=== PATIENT | female | born 1980 | race Caucasian/White ===

== ENCOUNTER 2017-12-20 20:07 | Inpatient (IN) | payer MEDICAID, OTHER ==
[2017-12-20] MEDS: HYDROCODONE/APAP (5/325) TAB PO (21:53)
[2017-12-20] MEDS: FAMOTIDINE 20 MG TAB PO (21:53)
[2017-12-20] MEDS: LIDOCAINE/MYLANTA 40 ML BTL PO (21:53)
[2017-12-20 21:56] LABS: URINE BLOOD (Dip) POC 2+ (NEGATIVE); URINE GLUCOSE (Dip) POC Negative (NEGATIVE); URINE KETONES (Dip) POC 1+ (NEGATIVE); URINE LEUKOCYTE EST (Dip) POC Negative (NEGATIVE); URINE NITRITE (Dip) POC Negative (NEGATIVE); URINE TOTAL PROTEIN POC 1+ (NEGATIVE)
[2017-12-20 22:01] LABS: ADD MAN DIFF? NO
[2017-12-20 22:19] LABS: ADD UMIC YES; UR ASCORBIC ACID NEGATIVE (NEGATIVE); UR BILIRUBIN (Dip) 2+ mg/dL (NEGATIVE); UR BLOOD (Dip) 2+ mg/dL (NEGATIVE); UR CLARITY CLEAR (CLEAR); UR COLOR AMBER (YELLOW); UR GLUCOSE (Dip) NEGATIVE (NEGATIVE); UR KETONES (Dip) NEGATIVE (NEGATIVE); UR LEUKOCYTE ESTERASE (Dip) NEGATIVE Leu/ul (NEGATIVE); UR MUCUS MANY /HPF (NONE SEEN); UR NITRITE (Dip) NEGATIVE (NEGATIVE); UR RBC 58 /HPF (0-5); UR SPECIFIC GRAVITY (Dip) 1.026 (1.003-1.030); UR SQUAMOUS EPITHELIAL CELL FEW /HPF (FEW); UR TOTAL PROTEIN (Dip) 1+ mg/dl (NEGATIVE); UR UROBILINOGEN (Dip) 2+ mg/dL (NEGATIVE); UR WBC 3 /HPF (0-5)
[2017-12-20 22:26] LABS: WHITE BLOOD COUNT 12.8 10^3/ul (4.8-10.8)
[2017-12-20 22:26] LABS: BASOPHILS % 0.2 % (0.0-2.0); EOSINOPHILS % 0.2 % (0.0-7.0); HEMATOCRIT 41.5 % (37.0-47.0); HEMOGLOBIN 13.8 g/dl (12.0-16.0); INR 0.96; LYMPHOCYTES % 7.7 % (15.0-51.0); MEAN CORPUSCULAR HEMOGLOBIN 28.5 pg (29.0-33.0); MEAN CORPUSCULAR HGB CONC 33.3 g/dl (32.0-37.0); MEAN CORPUSCULAR VOLUME 85.6 fl (82.0-101.0); MEAN PLATELET VOLUME 10.1 fl (7.4-10.4); MONOCYTE # 0.8 10^3/ul (0.3-0.9); MONOCYTES % 6.1 % (0.0-11.0); NEUTROPHIL # 10.9 10^3/ul (1.6-7.5); NEUTROPHILS % 85.3 % (39.0-77.0); PLATELET COUNT 331 10^3/UL (140-415); PROTIME 12.9 Sec (11.9-14.9); RED BLOOD COUNT 4.85 10^6/ul (4.20-5.40); RED CELL DISTRIBUTION WIDTH 12.9 % (11.5-14.5)
[2017-12-20 22:27] LABS: PARTIAL THROMBOPLASTIN TIME 26.8 Sec (25.0-35.0)
[2017-12-20 22:31] LABS: ALBUMIN 4.9 g/dl (3.3-4.9); ALBUMIN/GLOBULIN RATIO 1.25; ALKALINE PHOSPHATASE 208 IU/L (42-121); ANION GAP 12 (8-16); BILIRUBIN,INDIRECT 1.5 mg/dl (0-1.1); BILIRUBIN,TOTAL 3.8 mg/dl (0.2-1.3); BLOOD UREA NITROGEN 8 mg/dl (7-20); CALCIUM 9.5 mg/dl (8.4-10.2); CARBON DIOXIDE 27 mmol/L (21-31); CHLORIDE 103 mmol/L (97-110); CREATININE 0.58 mg/dl (0.44-1.00); GLUCOSE 118 mg/dl (70-220); LIPASE 73 U/L (23-300); POTASSIUM 3.8 mmol/L (3.5-5.1); SODIUM 138 mmol/L (135-144); TOTAL PROTEIN 8.8 g/dl (6.1-8.1)
[2017-12-20 22:41] LABS: ALANINE AMINOTRANSFERASE 1192 IU/L (13-69); ASPARTATE AMINO TRANSFERASE 972 IU/L (15-46)
[2017-12-20 22:42] LABS: TROPONIN-I < 0.010 ng/ml (0.000-0.120)
[2017-12-21] MEDS ORDERED: ACETAMINOPHEN 325 MG TAB PO
[2017-12-21] MEDS ORDERED: DOCUSATE SODIUM 100 MG CAP PO
[2017-12-21] MEDS ORDERED: BISACODYL (EC) 5 MG TAB PO
[2017-12-21] MEDS ORDERED: NACL 0.9% 3 ML SYG IV
[2017-12-21 00:03] LABS: HAAIG REFLEX REFLEX FILED
[2017-12-21] MEDS: SOD CHLORIDE 0.9% 1,000 ML IV ×4 (00:05→16:36)
[2017-12-21] MEDS: CEFTRIAXONE 1 GM/50 ML (PMX) 50 ML IVPB (00:12)
[2017-12-21] MEDS: LACTATED RINGER'S 1,000 ML IV (00:12)
[2017-12-21] MEDS: metroNIDAZOLE 500 MG/NS (PMX) 100 ML IVPB (00:13)
[2017-12-21 00:47] LABS: HEPATITIS B SURFACE ANTIGEN NEGATIVE (NEGATIVE)
[2017-12-21 01:03] LABS: HEPATITIS B SURFACE ANTIBODY NEGATIVE (NEGATIVE)
[2017-12-21 01:05] LABS: HEPATITIS B CORE ANTIBODY NEGATIVE (NEGATIVE); HEPATITIS C VIRAL ANTIBODY NEGATIVE (NEGATIVE)
[2017-12-21] MEDS: HYDROmorphONE 0.5 MG/0.5 ML SYG IV ×2 (01:35→10:43)
[2017-12-21] MEDS: ONDANSETRON 4 MG INJ IV (01:35)
[2017-12-21] MEDS ORDERED: PIPER-TAZO 3.375 GM IV (PMX) 100 ML IVPB (04:00)
[2017-12-21] MEDS: PIPER-TAZO 3.375 GM IV (PMX) 100 ML IVPB ×4 (05:22→23:44)
[2017-12-21 05:52] LABS: ADD MAN DIFF? NO
[2017-12-21 05:59] LABS: BASOPHILS % 0.2 % (0.0-2.0); EOSINOPHILS # 0.1 10^3/ul (0.0-0.5); EOSINOPHILS % 0.5 % (0.0-7.0); HEMATOCRIT 38.5 % (37.0-47.0); HEMOGLOBIN 12.7 g/dl (12.0-16.0); LYMPHOCYTES # 1.1 10^3/ul (0.8-2.9); LYMPHOCYTES % 11.6 % (15.0-51.0); MEAN CORPUSCULAR HEMOGLOBIN 28.6 pg (29.0-33.0); MEAN CORPUSCULAR VOLUME 86.7 fl (82.0-101.0); MEAN PLATELET VOLUME 10.5 fl (7.4-10.4); MONOCYTE # 0.7 10^3/ul (0.3-0.9); MONOCYTES % 7.5 % (0.0-11.0); NEUTROPHIL # 7.8 10^3/ul (1.6-7.5); NEUTROPHILS % 79.8 % (39.0-77.0); PLATELET COUNT 280 10^3/UL (140-415); RED BLOOD COUNT 4.44 10^6/ul (4.20-5.40); RED CELL DISTRIBUTION WIDTH 13.1 % (11.5-14.5)
[2017-12-21 05:59] LABS: WHITE BLOOD COUNT 9.8 10^3/ul (4.8-10.8)
[2017-12-21 06:20] LABS: ALANINE AMINOTRANSFERASE 849 IU/L (13-69); ALBUMIN 3.9 g/dl (3.3-4.9); ALBUMIN/GLOBULIN RATIO 1.21; ALKALINE PHOSPHATASE 170 IU/L (42-121); ANION GAP 12 (8-16); ASPARTATE AMINO TRANSFERASE 557 IU/L (15-46); BILIRUBIN,INDIRECT 1.2 mg/dl (0-1.1); BILIRUBIN,TOTAL 3.5 mg/dl (0.2-1.3); BLOOD UREA NITROGEN 7 mg/dl (7-20); CALCIUM 8.1 mg/dl (8.4-10.2); CARBON DIOXIDE 26 mmol/L (21-31); CHLORIDE 105 mmol/L (97-110); CHOL/HDL RATIO 6.3 RATIO; CHOLESTEROL 179 mg/dl (100-200); CREATININE 0.49 mg/dl (0.44-1.00); GLUCOSE 99 mg/dl (70-220); HDL CHOLESTEROL 28 mg/dl (34-82); LDL CHOLESTEROL,CALCULATED 132 mg/dl; MAGNESIUM 2.1 mg/dl (1.7-2.5); POTASSIUM 3.9 mmol/L (3.5-5.1); SODIUM 139 mmol/L (135-144); TOTAL PROTEIN 7.1 g/dl (6.1-8.1); TRIGLYCERIDES 94 mg/dl (0-149)
[2017-12-21 06:38] LABS: HEMOGLOBIN A1C 5.6 % (0-5.9)
[2017-12-21 07:28] LABS: ETHANOL < 10.0 mg/dl
[2017-12-21 16:42] LABS: ACETAMINOPHEN < 10.0 ug/ml (10.0-30.0)
[2017-12-21] MEDS: PANTOPRAZOLE 40 MG INJ IV (17:50)
[2017-12-22] MEDS: SOD CHLORIDE 0.9% 1,000 ML IV ×2 (04:28→17:28)
[2017-12-22] MEDS: PANTOPRAZOLE 40 MG INJ IV ×2 (05:44→17:27)
[2017-12-22] MEDS: PIPER-TAZO 3.375 GM IV (PMX) 100 ML IVPB ×4 (05:44→23:36)
[2017-12-22 08:43] LABS: ADD MAN DIFF? NO
[2017-12-22 08:56] LABS: BASOPHILS % 0.4 % (0.0-2.0); EOSINOPHILS # 0.2 10^3/ul (0.0-0.5); EOSINOPHILS % 2.4 % (0.0-7.0); HEMATOCRIT 35.5 % (37.0-47.0); HEMOGLOBIN 11.8 g/dl (12.0-16.0); LYMPHOCYTES # 1.2 10^3/ul (0.8-2.9); LYMPHOCYTES % 14.8 % (15.0-51.0); MEAN CORPUSCULAR HEMOGLOBIN 29.1 pg (29.0-33.0); MEAN CORPUSCULAR HGB CONC 33.2 g/dl (32.0-37.0); MEAN CORPUSCULAR VOLUME 87.4 fl (82.0-101.0); MEAN PLATELET VOLUME 10.6 fl (7.4-10.4); MONOCYTE # 0.6 10^3/ul (0.3-0.9); MONOCYTES % 7.4 % (0.0-11.0); NEUTROPHIL # 6.3 10^3/ul (1.6-7.5); NEUTROPHILS % 74.5 % (39.0-77.0); PLATELET COUNT 273 10^3/UL (140-415); RED BLOOD COUNT 4.06 10^6/ul (4.20-5.40); RED CELL DISTRIBUTION WIDTH 13.2 % (11.5-14.5)
[2017-12-22 08:56] LABS: WHITE BLOOD COUNT 8.4 10^3/ul (4.8-10.8)
[2017-12-22 09:14] LABS: INR 1.05; PROTIME 13.8 Sec (11.9-14.9); PT RATIO 1.1
[2017-12-22 09:52] LABS: ALANINE AMINOTRANSFERASE 545 IU/L (13-69); ALBUMIN 3.5 g/dl (3.3-4.9); ALBUMIN/GLOBULIN RATIO 1.16; ALKALINE PHOSPHATASE 163 IU/L (42-121); ANION GAP 13 (8-16); ASPARTATE AMINO TRANSFERASE 168 IU/L (15-46); BILIRUBIN,INDIRECT 0.7 mg/dl (0-1.1); BILIRUBIN,TOTAL 0.7 mg/dl (0.2-1.3); BLOOD UREA NITROGEN 7 mg/dl (7-20); CALCIUM 8.2 mg/dl (8.4-10.2); CARBON DIOXIDE 24 mmol/L (21-31); CHLORIDE 106 mmol/L (97-110); CREATININE 0.63 mg/dl (0.44-1.00); GLUCOSE 80 mg/dl (70-220); POTASSIUM 3.5 mmol/L (3.5-5.1); SODIUM 139 mmol/L (135-144); TOTAL PROTEIN 6.5 g/dl (6.1-8.1)
[2017-12-23] MEDS: SOD CHLORIDE 0.9% 1,000 ML IV ×3 (01:53→07:00)
[2017-12-23] MEDS: PIPER-TAZO 3.375 GM IV (PMX) 100 ML IVPB ×3 (05:15→18:04)
[2017-12-23] MEDS: PANTOPRAZOLE 40 MG INJ IV ×2 (05:15→18:04)
[2017-12-23] MEDS ORDERED: SUCCINYLCHOLINE CHLORIDE 100 MG/5 ML SYG IV (07:00)
[2017-12-23] MEDS ORDERED: ROCURONIUM 50 MG INJ (07:00)
[2017-12-23] MEDS ORDERED: ONDANSETRON 4 MG INJ (07:00)
[2017-12-23] MEDS ORDERED: DEXAMETHASONE 4 MG/ML 1 ML INJ (07:00)
[2017-12-23] MEDS ORDERED: FENTAnyl 50 MCG/ML VIAL (18:00)
[2017-12-23] MEDS ORDERED: MIDAZOLAM 1 MG/ML 2 ML INJ (18:01)
[2017-12-23] MEDS ORDERED: CEFAZOLIN 1 GM INJ (18:02)
[2017-12-23] MEDS ORDERED: LIDOCAINE 2% (SDV) 5 ML INJ (18:11)
[2017-12-23] MEDS ORDERED: PROPOFOL 20 ML (18:11)
[2017-12-23] MEDS ORDERED: METOCLOPRAMIDE 10 MG INJ (18:29)
[2017-12-23] MEDS ORDERED: BUPIVACAINE 0.25%/EPI (SDV) 30 ML INJ (19:18)
[2017-12-23] MEDS ORDERED: LIDOCAINE 1% (MPF) 30 ML INJ (19:18)
[2017-12-23] MEDS ORDERED: HYDROCODONE/APAP (5/325) TAB PO ×2 (19:30)
[2017-12-23] MEDS ORDERED: HYDROmorphONE 2 MG/ML SYG (20:13)
[2017-12-23] MEDS ORDERED: LABETALOL HCL 20MG INJ (20:34)
[2017-12-23] MEDS ORDERED: ROPIVACAINE 0.5 % 30 ML VIAL (20:49)
[2017-12-23] MEDS ORDERED: SUGAMMADEX SODIUM 200 MG/2 ML VIAL IV ×2 (20:55→21:13)
[2017-12-23] MEDS ORDERED: MEPERIDINE 25 MG INJ IV (21:30)
[2017-12-23] MEDS ORDERED: HYDROmorphONE 1 MG/5 ML IV SYRINGE IV ×2 (21:30)
[2017-12-23] MEDS ORDERED: IPRATROPIUM (NEB) 0.5 MG/2.5 ML AMP HHN (21:30)
[2017-12-23] MEDS ORDERED: ONDANSETRON 4 MG INJ IV (21:30)
[2017-12-23] MEDS ORDERED: FENTAnyl 50 MCG/ML VIAL IV (21:30)
[2017-12-23] MEDS ORDERED: DIPHENHYDRAMINE 50 MG INJ IV (21:30)
[2017-12-23] MEDS ORDERED: KETOROLAC 30 MG INJ IV (21:30)
[2017-12-23] MEDS: FENTAnyl 50 MCG/ML VIAL IV ×2 (21:34→21:53)
[2017-12-23] MEDS: HYDROmorphONE 1 MG/5 ML IV SYRINGE IV ×2 (21:35→21:53)
[2017-12-23 22:18] LABS: ADD MAN DIFF? NO
[2017-12-23 22:20] LABS: WHITE BLOOD COUNT 17.3 10^3/ul (4.8-10.8)
[2017-12-23 22:20] LABS: BASOPHIL # 0.1 10^3/ul (0.0-0.1); BASOPHILS % 0.3 % (0.0-2.0); EOSINOPHILS # 0.1 10^3/ul (0.0-0.5); EOSINOPHILS % 0.6 % (0.0-7.0); HEMATOCRIT 41.8 % (37.0-47.0); HEMOGLOBIN 13.5 g/dl (12.0-16.0); LYMPHOCYTES # 1.7 10^3/ul (0.8-2.9); LYMPHOCYTES % 10.1 % (15.0-51.0); MEAN CORPUSCULAR HEMOGLOBIN 28.4 pg (29.0-33.0); MEAN CORPUSCULAR HGB CONC 32.3 g/dl (32.0-37.0); MEAN PLATELET VOLUME 10.1 fl (7.4-10.4); MONOCYTE # 0.3 10^3/ul (0.3-0.9); NEUTROPHIL # 14.9 10^3/ul (1.6-7.5); NEUTROPHILS % 86.2 % (39.0-77.0); PLATELET COUNT 313 10^3/UL (140-415); RED BLOOD COUNT 4.75 10^6/ul (4.20-5.40); RED CELL DISTRIBUTION WIDTH 13.1 % (11.5-14.5)
[2017-12-24] MEDS: SOD CHLORIDE 0.9% 1,000 ML IV (05:49)
[2017-12-24] MEDS: PANTOPRAZOLE 40 MG INJ IV (05:55)
[2017-12-24 08:37] LABS: ADD MAN DIFF? NO
[2017-12-24 08:39] LABS: WHITE BLOOD COUNT 14.2 10^3/ul (4.8-10.8)
[2017-12-24 08:39] LABS: BASOPHILS % 0.1 % (0.0-2.0); HEMATOCRIT 37.3 % (37.0-47.0); HEMOGLOBIN 12.3 g/dl (12.0-16.0); LYMPHOCYTES % 7.3 % (15.0-51.0); MEAN CORPUSCULAR HEMOGLOBIN 28.1 pg (29.0-33.0); MEAN CORPUSCULAR VOLUME 85.2 fl (82.0-101.0); MEAN PLATELET VOLUME 10.1 fl (7.4-10.4); MONOCYTE # 0.6 10^3/ul (0.3-0.9); NEUTROPHIL # 12.5 10^3/ul (1.6-7.5); NEUTROPHILS % 88.2 % (39.0-77.0); PLATELET COUNT 306 10^3/UL (140-415); RED BLOOD COUNT 4.38 10^6/ul (4.20-5.40); RED CELL DISTRIBUTION WIDTH 13.2 % (11.5-14.5)
[2017-12-24 09:07] LABS: ALANINE AMINOTRANSFERASE 384 IU/L (13-69); ALBUMIN 3.8 g/dl (3.3-4.9); ALBUMIN/GLOBULIN RATIO 1.15; ALKALINE PHOSPHATASE 150 IU/L (42-121); ANION GAP 12 (8-16); ASPARTATE AMINO TRANSFERASE 136 IU/L (15-46); BILIRUBIN,INDIRECT 0.6 mg/dl (0-1.1); BILIRUBIN,TOTAL 0.6 mg/dl (0.2-1.3); BLOOD UREA NITROGEN 6 mg/dl (7-20); CALCIUM 8.7 mg/dl (8.4-10.2); CARBON DIOXIDE 25 mmol/L (21-31); CHLORIDE 105 mmol/L (97-110); CREATININE 0.55 mg/dl (0.44-1.00); GLUCOSE 111 mg/dl (70-220); POTASSIUM 4.3 mmol/L (3.5-5.1); SODIUM 138 mmol/L (135-144); TOTAL PROTEIN 7.1 g/dl (6.1-8.1)
[2017-12-27 14:06] LABS: ANA SCREEN NEGATIVE (NEGATIVE); MITOCHONDRIAL TB NEGATIVE (NEGATIVE); SMOOTH MUSCLE AB SCREEN POSITIVE (NEGATIVE); SMOOTH MUSCLE AB TITER 1:40 titer (<1:20)
== END 2017-12-24 16:00 | disposition home or self-care (01) | DRG 418 ==
LOC: FTE 20:07 → 2NE 23:41
PROC: 0FT44ZZ Resection of Gallbladder, Percutaneous Endoscopic Approach (ICD-10-PCS; principal; 2017-12-23 19:30)
DX: K80.00 Calculus of gallbladder with acute cholecystitis without obstruction (principal); B17.9 Acute viral hepatitis, unspecified; K86.2 Cyst of pancreas; K76.0 Fatty (change of) liver, not elsewhere classified; E66.9 Obesity, unspecified; Z68.32 Body mass index [BMI] 32.0-32.9, adult
CPT/HCPCS: 36415; 74181; 76705; 80053; 80061; 80307; 81001; 81003; 81025; 82787; 83036; 83690; 83735; 84443; 84484; 85025; 85610; 85730; 86038; 86255; 86376; 86704; 86706; 86708; 86709; 86803; 87340; 88304; 93005; 99285-25